=== PATIENT | male | born 1980 | race Caucasian/White ===

== ENCOUNTER 2017-06-05 12:18 | Emergency (ER) | payer OTHER ==
[~2017-06-05] VITALS: Ht 180.3 cm; Wt 103.4 kg
[~2017-06-05 12:18] MED LIST: BACTRIM DS TAB1 EACH PO; BACTROBAN22 GM TP; CLEOCIN HCL150 MG PO; DOXYCYCLINE 10100 MG PO; HIBICLENS120 ML TP; KEFLEX500 MG PO; NEXIUM40 MG; NOHOMEMEDICATIONS; NORCO 5-325 TA1 EACH PO; PERCOCET 5-3251 EACH PO; TESSALON200 MG PO; TRAMADOL 50 MG50 MG PO; ULTRAM 50MG TAB50 MG PO; ZOFRAN ODT4 MG PO; ZOFRAN4 MG PO; ZPAK PO; [UNRECOGNIZED DRUG - OTHER]
[2017-06-05] MEDS ORDERED: IBUPROFEN 800800 MG PO (14:05)
[2017-06-05] MEDS ORDERED: ACETAMINOPHEN-1 EAC1 PO (14:05)
[2017-06-05 14:15] VITALS: BP 135/88
== END 2017-06-05 14:16 | disposition home or self-care (01) ==
LOC: M.ERS 12:18
DX: S60.211A Contusion of right wrist, initial encounter (principal); F17.210 Nicotine dependence, cigarettes, uncomplicated; Z88.6 Allergy status to analgesic agent; Z88.0 Allergy status to penicillin; Z88.8 Allergy status to other drugs, medicaments and biological substances; W23.0XXA Caught, crushed, jammed, or pinched between moving objects, initial encounter; Y93.89 Activity, other specified; Y92.89 Other specified places as the place of occurrence of the external cause; Y99.8 Other external cause status

== ENCOUNTER 2018-02-24 16:36 | Emergency (ER) | payer OTHER ==
[~2018-02-24] VITALS: Ht 180.3 cm; Wt 106.1 kg
[~2018-02-24 16:36] MED LIST changes: +ACETAMINOPHEN-1 EAC1 PO; +IBUPROFEN 800800 MG PO
[2018-02-24] MEDS ORDERED: OMEPRAZOLE40 MG PO (16:43)
[2018-02-24 17:43] LABS: CALCIUM 9.1 mg/dL (8.5-10.1); POTASSIUM 4.1 mmol/L (3.5-5.1)
[2018-02-24 18:48] VITALS: BP 137/79
== END 2018-02-24 18:49 | disposition home or self-care (01) ==
LOC: M.ERS 16:36
PROVIDERS: Physician Assistant
DX: M54.2 Cervicalgia (principal); K21.9 Gastro-esophageal reflux disease without esophagitis; F17.210 Nicotine dependence, cigarettes, uncomplicated; Z88.0 Allergy status to penicillin; Z88.6 Allergy status to analgesic agent; Z88.8 Allergy status to other drugs, medicaments and biological substances

== ENCOUNTER 2018-06-01 06:20 | Emergency (ER) | payer OTHER ==
[~2018-06-01] VITALS: Ht 180.3 cm; Wt 106.1 kg
[~2018-06-01 06:20] MED LIST changes: +OMEPRAZOLE40 MG PO
[2018-06-01 06:45] LABS: ABSOLUTE BASOPHILS 0.1 thou/uL (0.0-0.2); ABSOLUTE EOSINOPHILS 0.4 thou/uL (0.0-0.7); ABSOLUTE LYMPHOCYTES 2.2 thou/uL (0.8-5.3); ABSOLUTE MONOCYTES 0.6 thou/uL (0.0-1.2); ABSOLUTE NEUTROPHILS 4.7 thou/uL (1.6-8.1); BASOPHILS 0.9 %; EOSINOPHILS 4.5 %; HEMATOCRIT 43.1 % (42.0-52.0); HEMOGLOBIN 14.5 gm/dL (14.0-18.0); LYMPHOCYTES 27.3 %; MCH 28.9 pg (26.0-34.0); MCHC 33.7 g/dL (28.0-37.0); MCV 85.9 fL (80.0-100.0); MONOCYTES 7.7 %; MPV 8.9 fl. (7.2-11.1); NUCLEATED RBCS 0 /100WBC; PLATELET COUNT* 310 thou/uL (150-400); POLYS 59.6 %; RBC 5.02 mil/uL (4.50-6.00); RDW-CV 14.6 % (10.5-14.5); WBC 7.9 thou/uL (4.0-11.0)
[2018-06-01 06:57] LABS: ALBUMIN 3.7 g/dL (3.4-5.0); CALCIUM 9.1 mg/dL (8.5-10.1); CREATININE 1.2 mg/dL (0.6-1.3); POTASSIUM 4.3 mmol/L (3.5-5.1); TOTAL BILIRUBIN 0.3 mg/dL (<0.1-1.0); TOTAL PROTEIN 7.7 g/dL (6.4-8.2)
[2018-06-01] MEDS ORDERED: HYDROCODON-ACE1 EAC7 PO (08:33)
[2018-06-01 09:10] VITALS: BP 122/73
[2018-06-01] MEDS ORDERED: PROTONIX40 MG PO (09:10)
== END 2018-06-01 09:15 | disposition home or self-care (01) ==
LOC: M.ERS 06:20
PROVIDERS: Emergency Medicine
DX: K92.2 Gastrointestinal hemorrhage, unspecified (principal); F17.210 Nicotine dependence, cigarettes, uncomplicated; K21.9 Gastro-esophageal reflux disease without esophagitis; Z88.6 Allergy status to analgesic agent; Z88.0 Allergy status to penicillin; Z88.8 Allergy status to other drugs, medicaments and biological substances

== ENCOUNTER 2020-08-09 12:00 | Emergency (ER) | payer OTHER ==
[~2020-08-09] VITALS: Ht 180.3 cm; Wt 106.1 kg
[~2020-08-09 12:00] MED LIST changes: +HYDROCODON-ACE1 EAC7 PO; +PROTONIX40 MG PO
[2020-08-09] MEDS ORDERED: TESSALON PERLE100 MG PO (12:47)
[2020-08-09] MEDS ORDERED: APAP W/CODEINE1 TA2 PO (12:47)
[2020-08-09] MEDS ORDERED: PREDNISONE 20 M20 MG PO (12:47)
[2020-08-09 13:10] VITALS: BP 141/83
== END 2020-08-09 13:10 | disposition home or self-care (01) ==
LOC: M.ERS 12:00
DX: J06.9 Acute upper respiratory infection, unspecified (principal); Z20.822 Contact with and (suspected) exposure to COVID-19; F17.210 Nicotine dependence, cigarettes, uncomplicated; K21.9 Gastro-esophageal reflux disease without esophagitis; Z88.6 Allergy status to analgesic agent; Z88.0 Allergy status to penicillin; Z88.8 Allergy status to other drugs, medicaments and biological substances; Z98.890 Other specified postprocedural states